=== PATIENT | female | born 1985 | race Caucasian/White ===

== ENCOUNTER 2019-09-18 14:19 | Emergency (ER) | payer SELFPAY ==
[~2019-09-18] VITALS: Ht 165.1 cm; Wt 61.4 kg
[2019-09-18 21:32] VITALS: BP 137/74
== END 2019-09-18 21:42 | disposition home or self-care (01) ==
LOC: EMS 14:20
DX: F10.129 Alcohol abuse with intoxication, unspecified (principal)

== ENCOUNTER 2022-07-11 11:23 | Emergency (ER) | payer SELFPAY ==
[~2022-07-11] VITALS: Ht 165.1 cm; Wt 54.5 kg
[2022-07-11 11:34] VITALS: BP 119/83
[2022-07-11 11:46] LABS: GLUCOMETER DEV NAME(LOC) ERT.5; GLUCOSE,POINT OF CARE 101 MG/DL (70-110)
== END 2022-07-11 12:39 | disposition home or self-care (01) ==
LOC: EMS 11:24
DX: F10.229 Alcohol dependence with intoxication, unspecified (principal); V99.XXXA Unspecified transport accident, initial encounter; Y93.89 Activity, other specified; Y92.89 Other specified places as the place of occurrence of the external cause; Y99.8 Other external cause status; Y90.9 Presence of alcohol in blood, level not specified
CPT/HCPCS: 82962; 99283